=== PATIENT | male | born 1980 | race Two or more races ===

== ENCOUNTER → 2022-03-25 | Outpatient (CLI) | payer OTHER ==
--- NOTE | 2022-03-25 12:10 | XR ---
EXAMINATION TYPE: XR shoulder complete 3 views RT DATE OF EXAM: 03/25/2022 Comparison: None Clinical History: 41-year-old male pain after S43.401A UNSPECIFIED SPRAIN OF RIGHT SHOULDER JOIN Findings: AC joint appears intact. Subacromial space is preserved. No acute fracture, subluxation, dislocation seen. Impression: No acute osseous abnormality seen.
== END | disposition home or self-care (01) ==
LOC: RADXRMAIN 11:41
PROVIDERS: ATTEND Emergency Medicine
DX: S43.401A Unspecified sprain of right shoulder joint, initial encounter (principal); X58.XXXA Exposure to other specified factors, initial encounter